=== PATIENT | male | born 1935 | race Caucasian/White ===

== ENCOUNTER 2019-08-20 09:28 | Emergency (ER) | payer MEDICARE ==
[~2019-08-20] VITALS: Ht 165.1 cm; Wt 81.8 kg
--- NOTE | 2019-08-20 09:59 | NUR ---
Patient ambulated to room with steady gait. Don gown and given warm blankets. Bladder scanner at bedside. Provider at bedside.
[2019-08-20] MEDS ORDERED: morphine 4 MG/ML inj SYRINge IV ONE ×2 (10:00→11:15)
[2019-08-20] MEDS ORDERED: ondansetron/PF 4mg/2ml inj IV ONE ×2 (10:00→11:15)
--- NOTE | 2019-08-20 10:34 | NUR ---
Attempted to place davila cath 16 FR and coude cath, unsuccessful. upon removing caths noted samantha red blood coming from penies. Provider informed. Awaiting Urologist arrival.
[2019-08-20 10:42] LABS: BASOPHILS % (AUTO) 0.8 % (0-1); EOSINOPHILS % (AUTO) 0.6 % (0-6); HEMATOCRIT 43.9 % (42.0-52.0); LYMPHOCYTES # (AUTO) 0.9 X10'3 (1.1-4.8); LYMPHOCYTES % (AUTO) 18.8 % (21-51); MEAN CORPUSCULAR HEMOGLOBIN 31.8 PG (27.0-31.0); MEAN CORPUSCULAR HGB CONC 34.3 g/dL (33.0-36.5); MEAN CORPUSCULAR VOLUME 92.8 FL (78-98); MEAN PLATELET VOLUME 7.4 FL (7.4-10.4); MONOCYTES # (AUTO) 0.4 X10'3 (0-0.9); MONOCYTES % (AUTO) 8.7 % (2-12); NEUTROPHILS # (AUTO) 3.4 X10'3 (1.8-7.7); NEUTROPHILS % (AUTO) 71.1 % (42-75); PLATELET COUNT 136 X10'3 (140-440); RED BLOOD COUNT 4.73 X10'6 (4.70-6.10); RED CELL DISTRIBUTION WIDTH 13.9 % (11.5-14.5); WHITE BLOOD COUNT 4.7 X10'3 (4.5-11.0)
[2019-08-20 10:57] LABS: ALANINE AMINOTRANSFERASE 25 U/L (12-78); ALBUMIN 4.1 G/DL (3.4-5.0); ALBUMIN/GLOBULIN RATIO 1.2 (1.1-1.5); ALKALINE PHOSPHATASE 67 IU/L (46-116); ANION GAP 10 (8-16); ASPARTATE AMINO TRANSFERASE 25 U/L (10-37); BILIRUBIN,TOTAL 0.8 MG/DL (0.1-1.0); BLOOD UREA NITROGEN 17 MG/DL (7-18); BUN/CREATININE RATIO 11.7 (5.4-32.0); CALCIUM 9.5 MG/DL (8.5-10.1); CHLORIDE 107 MMOL/L (99-107); CREATININE 1.45 MG/DL (0.60-1.10); GLUCOSE 123 MG/DL (70-104); LIPASE 117 U/L (73-393); POTASSIUM 4.2 MMOL/L (3.5-5.1); SODIUM 143 MMOL/L (135-145); TOTAL CARBON DIOXIDE 25.6 MMOL/L (24-32); TOTAL PROTEIN 7.6 G/DL (6.4-8.2); eGFR 47 ML/MIN
--- NOTE | 2019-08-20 11:19 | NUR ---
Urologist at bedside.
[2019-08-20] MEDS ORDERED: normal saline 1000ml 1,000 ML IV ONE ×2 (11:45→12:45)
[2019-08-20] MEDS ORDERED: iohexol 300mg/ml 100ml inj. ONE (11:58)
--- NOTE | 2019-08-20 12:01 | NUR ---
pt to ct
[2019-08-20 12:02] LABS: CLARITY,URINE CLOUDY (Clear); COLOR,URINE RED (Yellow); GLUCOSE, URINE NEGATIVE (Neg); KETONES,URINE TRACE mg/dl (Neg); LEUKOCYTE ESTERASE ,URINE TRACE (Neg); OCCULT BLOOD,URINE LARGE (Neg); PH,URINE 6.5 (4.8-8.0); PROTEIN,URINE 100 mg/dl (Neg)
[2019-08-20 12:15] LABS: NITRITES, URINE NEGATIVE (Neg); UA COLLECTION TYPE FOLEY CATH
[2019-08-20 12:16] LABS: RBC,URINE TNTC /HPF (0-2)
[2019-08-20 12:17] LABS: BACTERIA,URINE 1+ /HPF (Neg); SQUAMOUS EPITHELIAL CELL,UR NONE SEEN /LPF (FEW)
[2019-08-20] MEDS ORDERED: CEPH250T PO (12:42)
[2019-08-20] MEDS ORDERED: ONDA4TAB6 PO (12:49)
[2019-08-20] MEDS ORDERED: HYDR-4383 PO (12:49)
[2019-08-20 14:07] VITALS: BP 139/79
== END 2019-08-20 14:09 | disposition home or self-care (01) ==
LOC: ER 09:29
DX: R33.8 Other retention of urine (principal); N30.01 Acute cystitis with hematuria; N20.1 Calculus of ureter; Z85.46 Personal history of malignant neoplasm of prostate; Z79.2 Long term (current) use of antibiotics; Z79.899 Other long term (current) drug therapy
CPT/HCPCS: 36415; 51702; 74177; 80053; 81001; 83690; 85025; 87088; 96374; 96375; 96376; 99285; J2270; J2405; J7030; Q9967

== ENCOUNTER 2021-06-30 11:31 | Emergency (ER) | payer MEDICARE ==
[~2021-06-30] VITALS: Ht 167.6 cm; Wt 80.5 kg
[~2021-06-30 11:31] MED LIST: HYDR-4383 PO; ONDA4TAB6 PO
[2021-06-30 11:38] VITALS: BP 165/75
[2021-06-30] MEDS ORDERED: PERM60CR19 TOP (12:15)
== END 2021-06-30 12:36 | disposition home or self-care (01) ==
LOC: ER 11:32
DX: B86 Scabies (principal); Z85.9 Personal history of malignant neoplasm, unspecified; Z79.899 Other long term (current) drug therapy
CPT/HCPCS: 99283